=== PATIENT | female | born 1990 | race Caucasian/White ===

== ENCOUNTER → 2017-01-04 | Outpatient (CLI) | payer OTHER ==
[~2017-01-04] MED LIST: KETO10TA PO; OXYC-57 PO
--- NOTE | 2017-01-04 17:10 | DIAGNOSTIC IMAGING REPORT ---
ADDENDUM Addendum: The findings were correlated with surgical history of biceps tenodesis. The material within the bicipital groove may reflect minimal scar tissue. The findings on this exam suggest repositioning of the biceps tendon with tenodesis. Visualized portions of the tendon appear intact. The findings suggest expected post surgical findings following biceps tenodesis. Electronically signed by: Tyler Leblanc M.D. 01/05/2017 2:52 PM Dictated Date/Time: 01/05/2017 2:49 PM ORIGINAL REPORT MRI OF THE RIGHT SHOULDER WITHOUT CONTRAST CLINICAL HISTORY: Right shoulder pain. Biceps tendinitis. COMPARISON STUDY: MRI of the right shoulder March 16, 2016. TECHNIQUE: Utilizing a 1.5 Radha magnet and dedicated coil, multiplanar, multiecho imaging of the right shoulder was performed without intravenous or intra-articular contrast. FINDINGS: Alignment of the right shoulder is anatomic. There is no marrow edema or marrow replacement. There are findings consistent with a biceps tenodesis. There is abnormal signal and morphology of the proximal long head of biceps tendon which has increased since exam of March 16, 2016. The posterior superior glenoid labrum is truncated. There is no full-thickness rotator cuff tear. No significant chondrosis is present. There is no mass or fluid collection adjacent to the right shoulder. There is trace fluid within the subacromial/subdeltoid bursa. IMPRESSION: 1. Abnormal signal and morphology of the proximal long head of the biceps tendon which suggests tendinopathy with high-grade partial-thickness tear. A full-thickness tear would be difficult to exclude on this exam. The findings have progressed since exam of March 16, 2016. 2. Truncated posterior superior labrum which could reflect post surgical change or a tear. 3. No full-thickness rotator cuff tear. Electronically signed by: Tyler Leblanc M.D. 01/04/2017 5:08 PM Dictated Date/Time: 01/04/2017 4:53 PM
== END | disposition home or self-care (01) ==
LOC: C.MRIBC 14:41
PROVIDERS: ATTEND Orthopaedic Surgery
DX: M75.21 Bicipital tendinitis, right shoulder (principal)

== ENCOUNTER → 2017-01-28 | Day surgery (SDC) | payer OTHER ==
[2017-01-19 10:01] VITALS: Ht 172.7 cm; Wt 81.8 kg
[~2017-01-28] VITALS: Ht 172.7 cm; Wt 81.8 kg
[~2017-01-28] MED LIST changes: +ATROPINE SULFATE 0.1 MG/ML 5ML SYR IV PRN; +BUPIVACAINE/EPINEPHRINE 0.25% 1:200,000 30 ML VIAL ONE; +CEFAZOLIN 2000 MG/60 ML D5W IV SCH; +DEXAMETHASONE SOD INJ 4 MG/ML VIAL IV PRN; +DEXAMETHASONE SOD INJ 4 MG/ML VIAL ONE; +EpHEDrine SULFATE INJ 50 MG/ML AMP IV PRN; +EpINEphrine INJ 1MG/ML AMP 1 MG/ML AMP ONE; +FENTANYL CITRATE INJ 50 MCG/1 ML 2 ML VIAL IV PRN; +FENTANYL CITRATE INJ 50 MCG/1 ML 2 ML VIAL ONE; +KETOROLAC TROMETHAMINE 30 MG/ML VIAL IV. PRN; +LABETALOL HCL IV 5 MG/ML 20ML IV PRN; +LACTATED RINGER'S 1000ML 1,000 ML IV SCH; +LACTATED RINGER'S 1000ML 500 ML IV SCH; +LIDOCAINE HCL 1% MPF 2 ML VIAL ONE; +METOCLOPRAMIDE HCL INJ 5 MG/ML 2 ML VIAL IV PRN; +MIDAZOLAM HCL 1 MG/ML 2ML VIAL ONE; +MoRPHine SULFATE 2 MG/ML CARP IV PRN; +ONDANSETRON INJ 2 MG/ML 2 ML VIAL IV PRN; +ONDANSETRON INJ 2 MG/ML 2 ML VIAL ONE; +OXYCODONE/ACETAMINOPHEN 5-325 TAB PO PRN; +PHENYLEPHRINE 100MCG/ML 5ML SYR IV PRN; +PROPOFOL IV EMULSION 10 MG/ML 20 ML VIAL IV ONE; +ROPIVACAINE 0.5% 5 MG/ML 30 ML VIAL ONE; +SODIUM CHLORIDE 0.9% 1000ML 1,000 ML IV SCH
--- NOTE | 2017-01-28 11:49 | History & Physical Bridge Note ---
H&P Re-Evaluation Bridge Note: I have examined the patient, reviewed the History & Physical and in the interval since the performance of the History & Physical I have noted the following changes of clinical significance: No changes noted
[2017-01-28 14:29] VITALS: TEMP 37.3
--- NOTE | 2017-01-28 14:33 | Anesthesia Progress Nt - [facility] ---
Anesthesia Post Op Note Date & Time Jan 28, 2017 at 14:33 Vital Signs Pain Intensity: 0 Vital Signs Past 12 Hours Date Time Temp Pulse Resp B/P Pulse Ox O2 Delivery O2 Flow Rate FiO2 01/28/17 14:29 37.3 52 16 112/74 99 Room Air 01/28/17 13:23 103/50 01/28/17 13:21 58 01/28/17 13:21 53 11 100 01/28/17 13:16 58 0 95 01/28/17 13:16 59 01/28/17 13:11 54 18 100 01/28/17 13:11 54 01/28/17 13:10 114/61 01/28/17 13:06 52 0 01/28/17 12:09 36.6 55 16 112/62 99 Room Air Notes Mental Status: alert / awake / arousable, participated in evaluation Pt Amnestic to Procedure: Yes Nausea / Vomiting: adequately controlled Pain: adequately controlled Airway Patency, RR, SpO2: stable & adequate BP & HR: stable & adequate Hydration State: stable & adequate Anesthetic Complications: no major complications apparent
--- NOTE | 2017-01-28 14:35 | Discharge Instructions-SurgCtr ---
Discharge Instructions Date of Service Jan 28, 2017. Visit Reason for Visit: Right Shoulder Biceps Tendinitis, Joint Pain Discharge Discharge Diagnosis / Problem: SAME ABOVE Discharge Goals Goal(s): Decrease discomfort, Improve function Activity Recommendations Activity Limitations: as noted below Lifting Limitations: gradually increase as tolerated Exercise/Sports Limitations: gradually increase as tolerated Shower/Bathe: tomorrow Anesthesia . Post Anesthesia Instructions: If you have had General Anesthesia or IV Sedation: * Do not drive today. * Resume driving when surgeon permits. * Do not make important decisions or sign legal documents today. * Call surgeon for: 1. Temperature elevations greater than 101 degrees F. 2. Uncontrollable pain. 3. Excessive bleeding. 4. Persistent nausea and vomiting. 5. Medication intolerance (nausea, vomiting or rash). * For nausea and vomiting use only clear liquids such as: tea, soda, bouillon until nausea subsides, then gradually increase diet as tolerated. * If you have any concerns or questions, call your surgeon's office. If physician is unavailable and it is an emergency, call 911 or go to the nearest emergency room. . Instructions / Follow-Up Instructions / Follow-Up MEDICATIONS: * Resume previous medications unless instructed otherwise by your surgeon. * Always take pain medication on a full stomach or with food to avoid upset stomach. * Do not drink alcohol or drive while taking narcotics. * Ibuprofen or Tylenol may be taken if narcotic not needed. SPECIAL CARE INSTRUCTIONS: __ None _X_ Keep extremity elevated and iced x 48 hours; apply ice 20-30 minutes 8-10 times/day. May remove at night. _X_ Sling (WEAR NEEDED FOR COMFORT) __24 hrs/day __ Remove at night __ Shoulder Immobilizer __ 24 hrs/day __ Remove at night _X_ Dressing __ Maintain until seen in office, may shower with plastic over site _X_ Remove dressings in 24-48 hours and then may shower _X_ Cover incisions with band-aids after showering __ Do not remove steri-strips Call physician if chills or temperature rises above 102 degrees or pain unrelieved by prescribed pain medications at . . Diet Recommendations Home Diet: no limitations Fluid Restriction: None Procedures Procedures Performed: Right Shoulder Arthroscopy, Extensive Debridement Pending Studies Studies pending at discharge: no Work Instructions Return To Work: after follow-up Medical Emergencies . Who to Call and When: Medical Emergencies: If at any time you feel your situation is an emergency, please call 911 immediately. . Non-Emergent Contact Non-Emergency issues call your: Primary Care Provider Call Non-Emergent contact if: you have a fever, temperature is above 101.5 . . "Provider Documentation" section prepared by Laith Alaniz.
--- NOTE | 2017-01-28 14:44 | OPERATIVE REPORT ---
DATE OF OPERATION: 01/28/2017 PREOPERATIVE DIAGNOSIS: Persistent shoulder pain including adhesions, status post shoulder arthroscopy. POSTOPERATIVE DIAGNOSIS: Same. PROCEDURE: Right shoulder diagnostic arthroscopy with extensive debridement. SURGEON: Dr. Karlo Newman. BLOCKING MACHINE OPERATOR: Laith Alaniz PA-C, whose assistance was necessary for positioning the arm and helping with instrumentation. ANESTHESIA: Sedation with a right interscalene nerve block. COMPLICATIONS: None. CONDITION: Stable to PACU. 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 She was having a lot of biceps tendinitis. After MRI and clinical examination, confirmation with injections, she underwent an open biceps tenodesis 8 months ago. Unfortunately, postoperatively, she continued to have a lot of pain in the bicipital groove. She was unable to throw a ball and softball season was starting. After failing extensive conservative treatment including multiple other injections, she elected to proceed with arthroscopy and scar tissue removal. PROCEDURE IN DETAIL: On 01/28/2017, she arrived at [facility] for the above procedure. She was seen in the preoperative holding area and the operative extremity was identified and signed. She was given a preoperative antibiotic, taken back to the operating room, laid on the table in supine position and put under general anesthesia. She was then put into the beach chair position. The right shoulder was prepped and draped in sterile fashion. Time-out was done and the patient and operative extremity was properly identified. On preoperative physical examination, she had full range of motion and no signs of adhesive capsulitis. The scope was placed in the posterior portal. Diagnostic arthroscopy showed no cartilage damage to the humeral head or the glenoid. The biceps tendon was absent. There was no labral tearing of the anterior superior or posterior labrum. The rotator cuff was intact throughout. There was a little bit of scar tissue of the superior glenohumeral ligament. An anterior portal was made. A shaver and ablator were used to tease back some of the scarring of the superior glenohumeral ligament and to open up the rotator interval a little bit but not much. No additional pathology was found intraarticularly. The scope was then put into the subacromial space. A lateral portal was made. A shaver was used to do an extensive debridement of the subacromial structures. There was a lot of scar tissue formation that was taken down. The biceps groove was then followed anteriorly. An additional anterolateral portal was made. An ablator was used to ligate any of the circumflex vessels within the bicipital groove. Significant time was spent ensuring vessels were properly ligated. The coracoacromial ligament was still very tight and that was slightly teased back. I did not take down the whole ligament, I just teased it back to release some of the pressure off the anterior cuff. Repeat diagnostic arthroscopy showed no additional pathology. Multiple pictures were taken. Arthroscopic instruments were removed from the shoulder. Portal sites were closed with 3-0 nylon. She was then placed in a soft dressing and a regular arm sling. She was then extubated, transferred to a litter and taken to the postanesthesia care unit in stable condition. She tolerated the procedure well. I attest to the content of the Intraoperative Record and any orders documented therein. Any exceptio ns are noted below.
[2017-01-28 15:00] VITALS: BP 103/65; O2SAT 99
== END | disposition home or self-care (01) ==
LOC: X.SURG 11:19
PROVIDERS: ATTEND Orthopaedic Surgery
DX: M75.01 Adhesive capsulitis of right shoulder (principal); M25.511 Pain in right shoulder; Z98.890 Other specified postprocedural states; Z90.49 Acquired absence of other specified parts of digestive tract

== ENCOUNTER 2017-03-09 18:11 | Emergency (ER) | payer OTHER ==
[~2017-03-09] VITALS: Ht 172.7 cm; Wt 84.2 kg
[~2017-03-09 18:11] MED LIST changes: -ATROPINE SULFATE 0.1 MG/ML 5ML SYR IV PRN; -BUPIVACAINE/EPINEPHRINE 0.25% 1:200,000 30 ML VIAL ONE; -CEFAZOLIN 2000 MG/60 ML D5W IV SCH; -DEXAMETHASONE SOD INJ 4 MG/ML VIAL IV PRN; -DEXAMETHASONE SOD INJ 4 MG/ML VIAL ONE; -EpHEDrine SULFATE INJ 50 MG/ML AMP IV PRN; -EpINEphrine INJ 1MG/ML AMP 1 MG/ML AMP ONE; -FENTANYL CITRATE INJ 50 MCG/1 ML 2 ML VIAL IV PRN; -FENTANYL CITRATE INJ 50 MCG/1 ML 2 ML VIAL ONE; -KETOROLAC TROMETHAMINE 30 MG/ML VIAL IV. PRN; -LABETALOL HCL IV 5 MG/ML 20ML IV PRN; -LACTATED RINGER'S 1000ML 1,000 ML IV SCH; -LACTATED RINGER'S 1000ML 500 ML IV SCH; -LIDOCAINE HCL 1% MPF 2 ML VIAL ONE; -METOCLOPRAMIDE HCL INJ 5 MG/ML 2 ML VIAL IV PRN; -MIDAZOLAM HCL 1 MG/ML 2ML VIAL ONE; -MoRPHine SULFATE 2 MG/ML CARP IV PRN; -ONDANSETRON INJ 2 MG/ML 2 ML VIAL IV PRN; -ONDANSETRON INJ 2 MG/ML 2 ML VIAL ONE; -OXYCODONE/ACETAMINOPHEN 5-325 TAB PO PRN; -PHENYLEPHRINE 100MCG/ML 5ML SYR IV PRN; -PROPOFOL IV EMULSION 10 MG/ML 20 ML VIAL IV ONE; -ROPIVACAINE 0.5% 5 MG/ML 30 ML VIAL ONE; -SODIUM CHLORIDE 0.9% 1000ML 1,000 ML IV SCH
[2017-03-09 18:14] VITALS: TEMP 36.6; Ht 172.7 cm; Wt 84.2 kg
[2017-03-09] MEDS ORDERED: ACETAMINOPHEN 500 MG TAB PO STA (18:32)
--- NOTE | 2017-03-09 20:07 | EMERGENCY ROOM VISIT NOTE ---
ED Visit Note First contact with patient: 18:19 CHIEF COMPLAINT: Head injury (minor) HISTORY OF PRESENT ILLNESS: This 26-year-old female patient presented to the emergency department after receiving a head injury approximately one hour ago at 6 PM. There was no loss of consciousness. There has been no nausea or vomiting. The patient complains of headache, dizziness. The patient denies neck pain, vision changes, balance problems, confusion. The headache has been constant and throbbing . The patient complains of no neck pain. The patient has taken nothing for the pain. The patient rates the pain as 6/10. The patient denies bowel or bladder dysfunction. The patient denies any other injuries. REVIEW OF SYSTEMS: A review of systems was performed with positives and pertinent negatives listed in the history of present illness. All other systems were reviewed and are negative. ALLERGIES: None MEDICATIONS: None PMH: None significant SOCIAL HISTORY: Student. Lives with family. PHYSICAL EXAM: Vital Signs: Reviewed Nurse's notes, vital signs stable. GENERAL : Alert and oriented 4, in no acute distress, well-developed, well-nourished. NEURO: The patient is alert, oriented to person place and time, and coherent. Normal mini mental status exam. Negative Romberg and pronator drift. Cerebellar function intact. HEAD: Normocephalic. There is a slight contusion to the right frontal scalp, minimally tender to palpation, no abrasion or laceration, no skull depression or crepitus. EYES: Pupils are equal round and reactive to light and accommodation. EOMs are full and optic discs and fundi are normal. There is no swelling or discoloration of the tissue surrounding the eyes. EARS: External auditory canals clear without blood. No hemotympanum. NOSE: Patent without tenderness. No septal hematoma. No epistaxis. FACE: No facial bone tenderness. NECK: Supple. There is no cervical spine tenderness. The patient does not have tenderness with movement of the neck. DIFFERENTIAL DIAGNOSIS: Includes, but not limited to abrasion, contusion, concussion, less likely intracranial hemorrhage or skull fracture. ED COURSE: I examined the patient. She is well-appearing with a normal neurologic exam. No significant traumatic injury noted to the scalp. Suspect mild concussion given symptoms of dizziness with headache. She was given 1 g Tylenol by mouth and observed for one hour, for a total of 2 hours post injury. Her headache is improved after Tylenol her dizziness is also improved on reassessment. She is tolerating fluids by mouth. The patient was discharged home in good condition ambulatory. Current/Historical Medications No Active Prescriptions or Reported Meds Allergies Coded Allergies: No Known Allergies (Verified , 01/28/17) Vital Signs Date Time Temp Pulse Resp B/P Pulse Ox O2 Delivery O2 Flow Rate FiO2 03/09/17 20:17 68 18 108/65 98 03/09/17 18:14 36.6 66 20 111/66 97 Room Air Medications Administered Medications (Trade) Dose Ordered Sig/Mony Route Start Time Stop Time Status Last Admin Dose Admin Acetaminophen (Tylenol Tab) 1,000 mg NOW STAT PO 03/09/17 18:32 03/09/17 18:33 DC 03/09/17 18:38 1,000 MG Departure Information Impression Primary Impression: Closed head injury without loss of consciousness Dispostion Home / Self-Care Condition GOOD Prescriptions No Active Prescriptions or Reported Meds Referrals Jasbir Saavedra M.D. (PCP) Patient Instructions ED Concussion, [facility] Additional Instructions You most likely have a mild concussion. It is important to observe both physical and cognitive rest while recovering from a concussion. Physical rest includes no significant physical activity or exertion, heavy lifting over 10 pounds, and increasing sleep and not times throughout the day as needed. Cognitive rest includes taking breaks from prolonged screen time including TV, tablets, phone, or prolonged periods of talking on the telephone or reading. You should relax in a quiet, dark place for the rest of the day. Avoid any possible triggers including: cigarette smoke, caffeine, nicotine, chocolate, wine, beer, loud noises or music, or bright lights. For pain control, you can use the following [id number] medicines (if >12 yo): - Regular strength (325mg/tab) Tylenol (acetaminophen) 2 tabs every 4-6 hours as needed. Do not exceed 12 tablets in a 24 hour period. Avoid taking more than 4 grams (4000 mg) of Tylenol per day. This includes any other sources of acetaminophen you may take on a regular basis. - Regular strength (200 mg/tab) Advil (ibuprofen) 1-2 tabs every 4-6 hours as needed. Do not exceed a dose of 3200 mg per day. Follow-up with your PCP in the next 1-2 days rechecked. You should NOT return to athletic play until reevaluated by your Supervisor Forming Department. You should fully comply with their standard protocol regarding head injuries. Your Supervisor Forming Department OR Primary Care Provider will have the final say in your return to athletic play. This timeframe should be AT LEAST 1 week AFTER the date of last symptoms experienced! This is ESSENTIAL to allow for adequate brain healing time and for reduced risk of re-injury. Please return to the ER for any worsening symptoms, including severe worsening headache, persistent vomiting, vision changes, confusion, numbness or weakness on one side of the body, balance issues or difficulty walking, or any other concerns. Work Instructions Return To Work: 5 days Lifting Limitations: no more than 10 pounds Problem Qualifiers Primary Impression: Closed head injury without loss of consciousness Encounter type: initial encounter Qualified Codes: S09.90XA - Unspecified injury of head, initial encounter
[2017-03-09 20:17] VITALS: BP 108/65; PULSE 68; O2SAT 98
== END 2017-03-09 20:19 | disposition home or self-care (01) ==
LOC: C.EDB 18:12 → C.EDD 20:19
DX: S09.90XA Unspecified injury of head, initial encounter (principal); X58.XXXA Exposure to other specified factors, initial encounter